=== PATIENT | male | born 1995 | race Caucasian/White ===

== ENCOUNTER → 2020-11-09 11:05 | Outpatient (BNVA) | payer OTHER, SELFPAY | PROVIDERS: Visit Provider Nurse Practitioner Family | DX: Z20.822 Contact with and (suspected) exposure to COVID-19 (principal); J06.9 Acute upper respiratory infection, unspecified; Z20.828 Contact with and (suspected) exposure to other viral communicable diseases | CPT/HCPCS: 87426 ==

== ENCOUNTER → 2023-02-11 17:17 | Outpatient (BNVA) | payer OTHER, SELFPAY | PROVIDERS: Visit Provider Nurse Practitioner Family | DX: M54.9 Dorsalgia, unspecified (principal); N45.1 Epididymitis; R10.32 Left lower quadrant pain; N50.819 Testicular pain, unspecified | CPT/HCPCS: 74018; 80053; 81000; 82150; 83690; 85025; G0103 ==

== ENCOUNTER 2024-05-06 18:15 | Emergency (ER) | payer OTHER, SELFPAY ==
[2024-05-06 18:28] VITALS: BP 174/95; PULSE 108; RESP 18; TEMP 37.3; O2SAT 99; BMI 32.5
[2024-05-06 18:32] VITALS: BP 150/87; PULSE 105; RESP 16; O2SAT 94
--- NOTE | 2024-05-06 18:32 | ECG_ITS ---
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
--- NOTE | 2024-05-06 19:29 | XRR_ITS ---
PROCEDURE INFORMATION: Exam: XR Chest Exam date and time: 05/06/2024 8:16 PM Age: 28 years old Clinical indication: Pain; Chest pressure; Additional info: Cp, left arm pain TECHNIQUE: Imaging protocol: Radiologic exam of the chest. Views: 1 view. COMPARISON: CR XR KUB [id number] 02/11/2023 5:32 PM FINDINGS: Lungs: Lungs are clear. Pleural spaces: No pleural effusion. No pneumothorax. Heart/Mediastinum: Normal cardiomediastinal silhouette. Bones/joints: No acute osseous abnormality. XR/XR chest 1V portable [id number] IMPRESSION: No acute findings.
--- NOTE | 2024-05-06 19:44 | USR_ITS ---
PROCEDURE INFORMATION: Exam: US Duplex Left Upper Extremity Veins, Limited Exam date and time: 05/06/2024 7:47 PM Age: 28 years old Clinical indication: Arm, upper; 5 days of pain in left upper extremity, no trauma. ; Additional info: Left arm pain, swelling, no trauma TECHNIQUE: Imaging protocol: Real-time duplex ultrasound of the left extremity with 2-D nath scale, color Doppler flow and spectral waveform analysis including responses to compression and other maneuvers (when performed) with image documentation. Limited exam focused on the left upper extremity veins. COMPARISON: No relevant prior studies available. FINDINGS: Left deep veins: Unremarkable. Axillary and brachial veins are patent throughout without thrombus. Normal Doppler waveforms. Normal compressibility and/or augmentation response. Visualized internal jugular and subclavian veins are patent. Superficial veins: Unremarkable. Visualized cephalic and basilic veins are patent without thrombus. Soft tissues: Unremarkable. US/[place] [id number] IMPRESSION: No evidence of deep vein thrombosis.
--- NOTE | 2024-05-06 19:47 | ED_ITS ---
HPI - Extremity Problem 2 General: Chief complaint: Extremity Problem,Nontraumatic Stated complaint: Chest Pain going into left arm DVT Time Seen by Provider: 05/06/24 19:20 Source: patient Mode of arrival: ambulatory Limitations: no limitations History of Present Illness: Patient is a 28-year-old male who presents the emergency department complaining of chest pain beginning within the past couple of days. States that he is also having swelling and pain down the left arm, only history he can think of is that he recently started working out again, however despite medications at home has not had any improvement of the pain and swelling. States he is here as he thinks he has a blood clot in his arm. Also was concerned that his chest pain will not go away, it is not reproduced by movement or palpation. Denies any personal cardiac history or history of stroke/DVT. Denies any shortness of breath with the pain. He is not feeling like he is going to pass out and denies any pertinent familial history of cardiac issues at an early age. Slightly tachycardic during examination, as well as slight elevation in blood pressure. Rest of his vitals within normal limits. Other than his left arm there is no radiation of his chest pain, which she states is a pressure sensation to his left chest. MD Complaint: extremity pain (Left upper) and extremity swelling (Left upper) Onset (ago): day(s) Pain Consistency: constant Location: left and upper extremity Quality: other (Throbbing) Radiation: distal Exacerbating factors: range of motion and palpation Associated symptoms: Reports chest pain; Deny fever(s) or rash Context: other (Recently started working out again) Related Data Home Medications ?Medication ?Instructions ?Recorded ?Confirmed fexofenadine 60 mg tablet (Carmen 60 mg PO Q12H 01/2701/28/24 Allergy) Previous Rx's ?Medication ?Instructions ?Recorded methylprednisolone 4 mg tablets in See Rx Instructions PO PER PKG DIR 01/28/24 a dose pack (Medrol (Ayad)) #21 ea triamcinolone acetonide 0.1 % 1 applic topical BID 14 days #80 01/28/24 topical cream grams albuterol sulfate 90 mcg/actuation See Rx Instructions .Route 01/29/24 aerosol inhaler .COMPLEX #8.5 grams fluticasone 250 mcg-salmeterol 50 See Rx Instructions .Route 04/06/24 mcg/dose blistr powdr for .COMPLEX #60 blisters inhalation Allergies Allergy/AdvReac Type Severity Reaction Status Date / Time No Known Allergies Allergy Verified 05/06/24 18:32 Review of Systems 2 General: Reports: 10 or more systems reviewed and unremarkable except in HPI and below Const: Denies: fever(s), chills or fatigue Eyes: Denies: change in vision ENMT: Denies: throat pain, ear or mastoid pain or nasal discharge Card: Reports: chest pain; Denies: palpitations, lightheadedness or syncope Resp: Denies: dyspnea, productive cough or wheezing GI: Denies: abdominal pain, nausea, vomiting, diarrhea or constipation : Denies: flank pain, difficulty urinating, dysuria or urinary frequency Musc: Reports: extremity pain (Left upper) and extremity swelling (Left upper); Denies: neck pain, back pain or joint pain Skin/Breast: Denies: rash Neuro: Denies: headache(s), numbness in extremities or weakness in extremities PFSH ED 2 PFSH: Medical History Asthma Surgical History No pertinent past surgical history Social History Smoking and tobacco/nicotine status: never used tobacco/nicotine Quit status (tobacco/nicotine): not considering quitting Second hand smoke exposure: No Alcohol intake: current Alcohol intake frequency: holidays/special occasions only Substance/Drug Use: never Physical Exam 2 Const: COMMON NORMALS: no acute distress, patient oriented x3, no limitations, healthy appearing, alert and well nourished HENMT: COMMON NORMALS: normocephalic and atraumatic HEAD & SCALP: n ormocephalic and atraumatic Neck/C-Spine: COMMON NORMALS: full ROM, supple and no meningeal signs Chest: COMMONS NORMALS: normal inspection of the chest and normal palpation of entire chest wall OTHER: No reproducible tenderness to palpation to anterior chest wall Resp: COMMON NORMALS: normal respiratory effort, No retractions, No use of accessory muscles and clear to auscultation bilaterally AUSCULTATION: clear to auscultation bilaterally Cardio: COMMON NORMALS: regular rhythm, S1 normal heart sound present, S2 normal heart sound present, No gallops present (Cardio), No clicks present (Cardio), No murmurs present (Cardio), No rub (Cardio) and Peripheral pulses 2+ throughout RATE: tachycardic RHYTHM: regular rhythm HEART SOUNDS: S1 normal heart sound present and S2 normal heart sound present PERIPHERAL PULSES: Peripheral pulses 2+ throughout Extremity: COMMON NORMALS: normal to inspection, full ROM, capillary refill normal, no joint enlargement and no clubbing, cyanosis or edema NARRATIVE EXTREMITY EXAM: No obvious notable swelling to the left upper extremity. Distal radial pulses palpable and symmetrical to right upper extremity. Palpable brachial pulse. No cyanosis or coolness to left upper extremity. Neuro: COMMON NORMALS: patient oriented x3, moves all extremities, no focal motor deficits and no sensory deficits noted SENSORIUM/ORIENTATION: Yes alert MENINGEAL SIGNS: Yes no meningeal signs Skin: COMMON NORMALS: no rashes or lesions noted GENERAL SKIN EXAM: no rashes or lesions noted Course 2 Vital Signs: Vital signs: Vital Signs Temperature 99.1 F 05/06/24 18:28 Pulse Rate 88 05/06/24 22:08 Respiratory Rate 18 05/06/24 22:08 Blood Pressure 128/72 05/06/24 22:08 Pulse Oximetry 94 05/06/24 22:08 Oxygen Delivery Me thod Room Air 05/06/24 21:42 MDM - Extremity (Nontraumatic) Medical Decision Making Patient presented with left arm swelling and left chest pain, was concerned of DVT in his arm. Venous ultrasound was negative for this. Troponin was negative, EKG unremarkable and chest x-ray unremarkable. Rest of his lab work unremarkable. I suspect musculoskeletal as he states he recently started working out again, thinking he overdid it. Informed him of conservative therapies and reasons to return discussed, he verbalized understanding and is ready for discharge. Lab Data 05/06/24 19:41 05/06/24 19:41 Radiology Impressions Chest X-Ray 05/06/24 19:29 IMPRESSION: No acute findings. Laboratory Results WBC 13.04 10^3/uL (3.29-11.43) H 05/06/24 19:41 RBC 4.82 10^6/uL (3.85-5.65) 05/06/24 19:41 Hgb 14.50 g/dL (11.27-16.99) 05/06/24 19:41 Hct 42.7 % (37-53) 05/06/24 19:41 MCV 88.6 fl (82-101) 05/06/24 19:41 MCH 30.1 pg (27-33) 05/06/24 19:41 MCHC 34.0 g/dL (30-55) 05/06/24 19:41 RDW 12.5 % (12.1-15.1) 05/06/24 19:41 Plt Count 240 10^3/cmm (157-399) 05/06/24 19:41 MPV 9.6 fL (7.4-10.4) 05/06/24 19:41 Neut % (Auto) 60.2 % 05/06/24 19:41 Lymph % (Auto) 22.8 % 05/06/24 19:41 [place] % (Auto) 7.7 % 05/06/24 19:41 Eos % (Auto) 8.7 % 05/06/24 19:41 Baso % (Auto) 0.2 % 05/06/24 19:41 Neut # (Auto) 7.85 10^3/uL (1.8-7.7) H 05/06/24 19:41 Lymph # (Auto) 3.0 10^3/uL (0.8-4.8) 05/06/24 19:41 [place] # (Auto) 1.0 10^3/uL (0.2-0.9) H 05/06/24 19:41 Eos # (Auto) 1.1 10^3/uL (0.0-0.8) H 05/06/24 19:41 Baso # (Auto) 0.0 10^3/uL (0.0-0.1) 05/06/24 19: Nucleated RBC % (auto) 0 % 05/06/24 19: Nucleated RBCs # 0.0 /100WBC 05/06/24 19:41 Sodium 139 mmol/L (136-145) 05/06/24 19:41 Potassium 4.1 mmol/L (3.5-5.1) 05/06/24 19:41 Chloride 102 mmol/L (98-107) 05/06/24 19:41 Carbon Dioxide 24 mmol/L (22-29) 05/06/24 19:41 Anion Gap 17.1 (5-19) 05/06/24 19:41 BUN 13 mg/dL (6-20) 05/06/24 19:41 Creatinine 0.7 mg/dL (0.7-1.2) 05/06/24 19:41 GFR Calculation 134.3 mL/min (90-130) H 05/06/24 19:41 Glucose 83 mg/dL (65-115) 05/06/24 19:41 Calculated Osmolality 287 mOsm/kg (285-295) 05/06/24 19:41 Calcium 9.0 mg/dL (8.5-10.5) 05/06/24 19:41 Total Bilirubin 0.3 mg/dL (0.15-1.2) 05/06/24 19:41 AST 128 U/L (0-40) H 05/06/24 19:41 ALT 95 U/L (0-41) H 05/06/24 19:41 Alkaline Phosphatase 64 U/L (40-130) 05/06/24 19:41 Troponin T Baseline < 6 ng/L (0-15) 05/06/24 19:41 Total Protein 6.9 g/dL (6.6-8.7) 05/06/24 19:41 Albumin 4.3 g/dL (3.5-5.2) 05/06/24 19:41 Globulin 2.6 g/dL (1.3-4.6) 05/06/24 19:41 All radiology interpretation(s) finalized by discharge Discharge Plan Discharge Patient Disposition: Home Clinical Impression: Arm pain, musculoskeletal Qualifiers: Laterality: left Qualified Code(s): M79.602 - Pain in left arm Condition: Stable Prescriptions: No Action fexofenadine [Carmen Allergy] 60 mg tablet 60 mg PO Q12H methylprednisolone [Medrol (Ayad)] 4 mg tablets,dose pack See Rx Instructions PO PER PKG DIR Qty: 21 0RF Rx Instructions: PO PER PKG DIR triamcinolone acetonide 0.1 % cream 1 applic topical BID 14 Days Qty: 80 0RF albuterol sulfate 90 mcg/actuation HFA aerosol inhaler See Rx Instructions .ROUTE .COMPLEX Qty: 8.5 1RF Dose Instruction: inhale 2 puffs BY MOUTH EVERY 6 HOURS NEEDED FOR SHORTNESS OF BREATH OR wheezing Rx Instructions: inhale 2 puffs BY MOUTH EVERY 6 HOURS NEEDED FOR SHORTNESS OF BREATH OR wheezing fluticasone propion-salmeterol 250-50 mcg/dose blister with device See Rx Instructions .ROUTE .COMPLEX Qty: 60 5RF Dose Instruction: INHALE 1 PUFF INTO LUNGS TWICE DAILY Rx Instructions: INHALE 1 PUFF INTO LUNGS TWICE DAILY Discharge Orders: Discharge ED (Routine); Ordered 05/06/24 Ordered By: Ward Beck Referrals: Katia Reardon FNP [Primary Care Provider] - Patient Instructions: Musculoskeletal Pain (ED) Activity Restrictions/Additional Instructions: Tylenol or ibuprofen for pain. Heat for added relief. Gentle massaging and rest of the extremity as we discussed. Please return with any new or concerning symptoms and follow-up with primary care routinely. Print Language: Guamanian Coding Level of Care Code ED Explosives Mixer Operator for Lorrie Montano
[2024-05-06 19:48] LABS: Basophils % 0.2 %; Eosinophils # 1.1 10^3/uL (0.0-0.8); Eosinophils % 8.7 %; Hematocrit 42.7 % (37-53); Lymphocytes % 22.8 %; Mean Corpuscular Hemoglobin 30.1 pg (27-33); Mean Corpuscular Volume 88.6 fl (82-101); Mean Platelet Volume 9.6 fL (7.4-10.4); Monocytes % 7.7 %; Neutrophils # 7.85 10^3/uL (1.8-7.7); Neutrophils % 60.2 %; Nucleated Red Blood Cells % 0 %; Platelet Count 240 10^3/cmm (157-399); Red Blood Count 4.82 10^6/uL (3.85-5.65); Red Cell Distribution Width 12.5 % (12.1-15.1); White Blood Count 13.04 10^3/uL (3.29-11.43)
[2024-05-06 20:08] LABS: Alanine Aminotransferase 95 U/L (0-41); Albumin Level 4.3 g/dL (3.5-5.2); Alkaline Phosphatase 64 U/L (40-130); Anion Gap 17.1 (5-19); Aspartate Amino Transferase 128 U/L (0-40); Blood Urea Nitrogen 13 mg/dL (6-20); Carbon Dioxide 24 mmol/L (22-29); Chloride 102 mmol/L (98-107); Creatinine Clr Calc Pharmacy 177.4836; Globulin 2.6 g/dL (1.3-4.6); Glomerular Filtration Rate 134.3 mL/min (90-130); Glucose 83 mg/dL (65-115); Osmolality Calculated 287 mOsm/kg (285-295); Potassium 4.1 mmol/L (3.5-5.1); Sodium 139 mmol/L (136-145); Total Bilirubin 0.3 mg/dL (0.15-1.2); Total Protein 6.9 g/dL (6.6-8.7)
[2024-05-06 20:09] LABS: Troponin(5th) Baseline < 6 ng/L (0-15)
[2024-05-06 21:08] VITALS: BP 144/85; PULSE 91; RESP 16; O2SAT 94
[2024-05-06 21:42] VITALS: BP 128/72; PULSE 88; RESP 18; O2SAT 94
[2024-05-06 22:08] VITALS: BP 128/72; PULSE 88; RESP 18; O2SAT 94
== END 2024-05-06 22:09 | disposition home or self-care (01) ==
PROVIDERS: Emergency Provider Physician Assistant; PCP Nurse Practitioner Family
DX: M79.602 Pain in left arm (principal)
CPT/HCPCS: 36415; 71045; 80053; 84484; 85025; 93005; 93971; 99285